=== PATIENT | female | born 2000 | race Caucasian/White ===

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

== ENCOUNTER 2019-01-18 13:36 | Emergency (ER) | payer SELFPAY ==
[~2019-01-18] VITALS: Ht 170.2 cm; Wt 77.1 kg
[~2019-01-18 13:36] MED LIST changes: +AMOX1TAB61 PO; +HYDR-3164 PO
[2019-01-18 14:00] VITALS: BP 106/65
[2019-01-18] MEDS ORDERED: SULF1TAB24 PO (14:30)
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
== END 2019-01-18 14:38 | disposition home or self-care (01) ==
LOC: ER 13:36
DX: L02.416 Cutaneous abscess of left lower limb (principal); L03.116 Cellulitis of left lower limb
CPT/HCPCS: 99283

== ENCOUNTER 2019-04-28 03:56 | Observation (INO) | payer MEDICAID ==
[2019-04-28] MEDS ORDERED: IV RINGERS,LACTATED 1000ML 1,000 ML IV PRN (04:00)
[2019-04-28] MEDS ORDERED: ACETAMINOPHEN 325 MG TABLET. PO PRN (04:00)
[2019-04-28] MEDS ORDERED: ACETAMINOPHEN 500 MG TABLET PO PRN (04:24)
[2019-04-28 05:07] LABS: BILIRUBIN,URINE NEGATIVE (NEG); CLARITY,URINE CLEAR; COLOR,URINE YELLOW; NITRITE,URINE POSITIVE (NEG); PROTEIN,URINE NEGATIVE (NEG-TRACE)
[2019-04-28 05:15] LABS: AMPHETAMINE/METHAMPHETAMINE POS (NEG); BARBITURATES NEG (NEG); BENZODIAZEPINES NEG (NEG); CANNABINOIDS NEG (NEG); COCAINE NEG (NEG); METHADONE NEG (NEG); OPIATES NEG (NEG); PHENCYCLIDINE NEG (NEG)
[2019-04-28 05:29] LABS: BACTERIA,URINE MANY /HPF (0-FEW); RBC,URINE 0 /HPF (0-2)
[2019-04-28 05:30] LABS: SQUAMOUS EPITHELIAL CELL,UR MANY /LPF
[2019-04-28] MEDS ORDERED: cefTRIAXone IM 1 GM VIAL IM ONE (06:00)
== END 2019-04-28 06:31 | disposition home or self-care (01) ==
LOC: 3 SO LND 03:56
PROVIDERS: ADMIT Obstetrics & Gynecology; ATTEND Obstetrics & Gynecology
DX: O26.893 Other specified pregnancy related conditions, third trimester (principal); R10.9 Unspecified abdominal pain; Z3A.36 36 weeks gestation of pregnancy
CPT/HCPCS: 80307; 81001; 87086; 96372; G0378; G0379; J0696

== ENCOUNTER 2020-03-08 15:06 | Emergency (ER) | payer OTHER ==
[~2020-03-08] VITALS: Ht 170.2 cm; Wt 77.0 kg
[2020-03-08] MEDS ORDERED: HYDROmorphone 2 MG/ML VIAL ONE (15:13)
[2020-03-08] MEDS ORDERED: HYDROmorphone 2 MG/ML VIAL IV ONE (15:30)
[2020-03-08] MEDS ORDERED: ONDANSETRON PF 4 MG/2 ML VIAL. IVP ONE (15:30)
--- NOTE | 2020-03-08 15:38 | PHYS DOC ---
Past Medical History Past Medical History: No Pertinent History Past Surgical History: Other Additional Past Surgical Histo: TUBES IN EAR Smoking Status: Never Smoker Alcohol Use: None Drug Use: None General Adult EDM: Chief Complaint: TRAUMA ALERT HPI: HPI: History obtained from patient. Patient is a 19-year-old right-handed female who presents with chief complaint of laceration to the right distal forearm. Jakob cole states 30 minutes prior to arrival she punched through a glass window in anger. States her fist went through the window. She states she noted immediate pain and bleeding to her right forearm. She does note some tingling sensation and slight numbness to the right hand. Denies weakness. Denies taking any blood thinners. Denies trauma anywhere else. Review of Systems: Review of Systems: Constitutional: Denies fever or chills. [] Eyes: Denies change in visual acuity. [] HENT: Denies nasal congestion or sore throat. [] Respiratory: Denies cough or shortness of breath. [] Cardiovascular: Denies chest pain or edema. [] GI: Denies abdominal pain, nausea, vomiting, bloody stools or diarrhea. [] : Denies dysuria. [] Musculoskeletal: Denies back pain or joint pain. [] Integument: Positive for laceration Neurologic: Denies headache, focal weakness or sensory changes. [] Endocrine: Denies polyuria or polydipsia. [] Lymphatic: Denies swollen glands. [] Psychiatric: Denies depression or anxiety. [] Heart Score: Risk Factors: Risk Factors: DM, Current or recent (<one month) smoker, HTN, HLP, family history of CAD, obesity. Risk Scores: Score 0 - 3: 2.5% MACE over next 6 weeks - Discharge Home Score 4 - 6: 20.3% MACE over next 6 weeks - Admit for Clinical Observation Score 7 - 10: 72.7% MACE over next 6 weeks - Early Invasive Strategies Current Medications: Current Medications Medications (Trade) Dose Ordered Sig/[facility]el[facility] Start Time Stop Time Status Last Admin Dose Admin Cefazolin Sodium/ Dextrose 50 ml @ 100 mls/hr 1X ONCE 03/08/20 15:30 03/08/20 15:59 Hydromorphone HCl (Dilaudid) 1 mg 1X ONCE 03/08/20 15:30 03/08/20 15:31 DC 03/08/20 15:19 1 MG Ondansetron HCl (Zofran) 4 mg 1X ONCE 03/08/20 15:30 03/08/20 15:31 DC Allergies: Allergies: Allergies Coded Allergies Type Severity Reaction Last Updated Verified No Known Drug Allergies 11/06/15 No Physical Exam: PE: Physical Exam Trauma: Primary Survey: Airway: Intact. Speaks in normal voice and phonation. Breathing: Breath sounds are clear and equal bilaterally. Circulation: Regular rhythm, 2+ and symmetric radial, DP and PT pulses. Disability: GCS on arrival was 15. Pupils 3 mm, ERRL Exposure: Complete exposure obtained and described in detail below. Secondary Survey: General: Awake, alert, appropriate, and in moderate acute distress HENT: Atraumatic. TMs clear bilaterally, no hemotympanum. No periorbital tenderness or deformity. No obvious craniofacial trauma. Midface is stable. No apparent dental or tongue/oropharyngeal injury. No septal hematoma. Neck: C-spine: no midline tenderness. Without step-off, deformity, abrasion, ecchymosis, or other signs of trauma. Paraspinal musculature with no tenderness and/or hypertonicity. Eyes: Pupils 3 mm ERRL, EOMI grossly, no evidence of ocular trauma, conjunctivae normal Respiratory: CTAB without wheezing, rhonchi, or rales. No distress. Chest wall with no tenderness to palpation. No crepitus, ecchymosis, or flail segment present. Cardiovascular: Regular rhythm without murmurs noted. 2+ and symmetric radial, DP and PT pulses. GI: Soft, non-tender, non-distended Musculoskeletal: T-spine: no midline tenderness. Without step-off, deformity, abrasion, ecchymosis, or other signs of trauma. Paraspinal musculature with no tenderness and/or hypertonicity. L-spine: no midline tenderness. Without step-off, deformity, abrasion, ecchymosis, or other signs of trauma. Paraspinal musculature with no tenderness and/or hypertonicity. RUE: 3 cm laceration approximately 3 inches proximal from the wrist along the medial aspect of the right forearm. Adipose tissue visualized. No active bleeding appreciated. Additional 2 mm puncture wound noted over the lateral aspect approximately 3 inches proximal from the wrist. Brisk bleeding noted. Thready radial pulse on the right. Unable to visualize source of bleeding given small nature of wound. No obvious bruit auscultated over injury site LUE: Active ROM, no obvious deformity, no gross weakness or sensory deficits, warm & well-perfused RLE: Active ROM, no obvious deformity, no gross weakness or sensory deficits, wa rm & well-perfused LLE: Active ROM, no obvious deformity, no gross weakness or sensory deficits, warm & well-perfused Integument: Without abrasions, contusions, or lacerations. Neurologic: GCS on arrival as noted above. No obvious focal motor or sensory deficits on examination. Gait not assessed due to acuity of trauma assessment. EKG: EKG: [] Radiology/Procedures: Radiology/Procedures: [facility] [address] [place] [address] IMAGING REPORT Signed PATIENT: BERNARDO MAYEN NACCOUNT: [id number] : 2000 LOCATION: ER AGE: 19 SEX: F EXAM STATUS: REG ER ORD. PHYSICIAN: NOLVIA TAVARES DO REASON: laceration PROCEDURE: FOREARM RIGHT EXAM: Right forearm, 2 views. HISTORY: Laceration. COMPARISON: None. FINDINGS: 2 views of the right forearm are obtained. There is no fracture, dislocation or subluxation. There is a soft tissue laceration with associated soft tissue gas involving the ventral aspect of the distal forearm. No radiodense foreign body is seen. IMPRESSION: Soft tissue laceration involving the forearm. No foreign body or fracture is seen. Electronically signed by: Charline Dunham MD (03/08/2020 3:45 PM) [facility] DICTATED and SIGNED BY: CHARLINE DUNHAM MD DATE: 03/08/20 1545 [] Course & Med Decision Making: Course & Med Decision Making Pertinent Labs and Imaging studies reviewed. (See chart for details) [] Patient is a 19-year-old female presents with chief complaint of laceration of the right distal forearm after punching her fist through a glass window. Ini tial vital signs notable for tachycardia. She does appear anxious and in moderate distress. Wound evaluation noted above. I am concerned for vascular injury given the nature of the wound. Furthermore, the briskly bleeding wound is approximately 2 mm and I am unable to visualize the source of bleeding. I do not feel it is appropriate to explore the wound on my own as it may cause further damage and she could have current arterial injury. Tourniquet was placed at 1512. This did achieve hemostasis. Pain was well controlled. She was given 2 g Ancef. Tetanus was updated. Plain film imaging did not reveal any obvious fractures. I did discuss the case immediately with [facility] trauma transfer center. Patient has been accepted by to their emergency department. Dragon Disclaimer: Dragon Disclaimer: This electronic medical record was generated, in whole or in part, using a voice recognition dictation system. Departure Departure Impression: Primary Impression: Laceration of forearm, right, complicated Qualified Codes: S51.811A - Laceration without foreign body of right forearm, initial encounter Additional Impression: Vascular injury of right arm Qualified Codes: S45.901A - Unspecified injury of unspecified blood vessel at shoulder and upper arm level, right arm, initial encounter Disposition: 02 DC/TRF OTHER SHORT TERM HOS Condition: STABLE Referrals: FROYLAN NIEVES MD (PCP) NOLVIA TAVARES DO Mar 08, 2020 15:38
[2020-03-08] MEDS ORDERED: fentaNYL PF VIAL 100 MCG/2 ML VIAL ONE (15:44)
[2020-03-08 15:45] VITALS: BP 131/75
[2020-03-08] MEDS ORDERED: fentaNYL PF VIAL 100 MCG/2 ML VIAL IVP ONE (15:45)
[2020-03-08] MEDS ORDERED: IV NORMAL SALINE 1000ML BAG 1,000 ML IV ONE (15:45)
--- NOTE | 2020-03-08 15:48 | RAD ---
EXAM: Right forearm, 2 views. HISTORY: Laceration. COMPARISON: None. FINDINGS: 2 views of the right forearm are obtained. There is no fracture, dislocation or subluxation. There is a soft tissue laceration with associated soft tissue gas involving the ventral aspect of the distal forearm. No radiodense foreign body is seen. IMPRESSION: Soft tissue laceration involving the forearm. No foreign body or fracture is seen. Electronically signed by: Charline Canchola MD (03/08/2020 3:45 PM) [facility]
== END 2020-03-08 15:55 | disposition short-term general hospital (02) ==
LOC: ER 15:06
DX: S51.811A Laceration without foreign body of right forearm, initial encounter (principal); S55 Injury of blood vessels at forearm level; R20.2 Paresthesia of skin; Z98.890 Other specified postprocedural states; W25.XXXA Contact with sharp glass, initial encounter; Y93.89 Activity, other specified; Y92.89 Other specified places as the place of occurrence of the external cause; Y99.8 Other external cause status
CPT/HCPCS: 73090; 96365; 96375; 99285; J0690; J1170; J2405; J3010; J7030

== ENCOUNTER 2020-06-26 13:38 | Emergency (ER) | payer OTHER ==
[~2020-06-26] VITALS: Ht 170.2 cm; Wt 81.8 kg
[2020-06-26] MEDS ORDERED: LIDOCAINE 1% Multi-Dose 20 ML VIAL. ONE (14:54)
[2020-06-26] MEDS ORDERED: cefTRIAXone IM 250 MG VIAL IM ONE ×2 (15:45→16:30)
[2020-06-26] MEDS ORDERED: DOXY100T PO (16:18)
[2020-06-26] MEDS ORDERED: HYDR-2761 PO (16:18)
--- NOTE | 2020-06-26 16:18 | ED.ADGEN ---
Past Medical History Past Medical History: No Pertinent History, Other Additional Past Medical Histor: denies psych hx Past Surgical History: No Surgical History Additional Past Surgical Histo: TUBES IN EAR Smoking Status: Never Smoker Alcohol Use: None Drug Use: None General Adult EDM: Chief Complaint: VAGINAL PROBLEM HPI: HPI: Patient is a 20 year old female who presents emergency department with complaints of increased pain in her left Bartholin cyst. She states that she has had problems with the cyst for over 6 months but over the last month she has noticed a significant amount of increased swelling and pain. She also complains of foul-smelling vaginal odor and irregular vaginal discharge. She states that she is currently on her menstrual cycle. Patient reports concerns of a possible sexually transmitted infection she states that recent partner informed her that he had been diagnosed with STD recently. She also reports that her urine has been smelling strong and she has had increased urinary frequency. She denies any blood in her urine, nausea, vomiting, diarrhea, fever, cough, sore throat, body aches, chills, or diarrhea. Patient reports that her genitalia is constantly hot. She currently rates her pain a 6 out of 10 on the pain scale, she denies any alleviating factors. Review of Systems: Review of Systems: Complete ROS is negative unless otherwise noted in HPI. Current Medications: Current Medications Medications (Trade) Dose Ordered Sig/[facility] Start Time Stop Time Status Last Admin Dose Admin Ceftriaxone Sodium (Rocephin Im) 500 mg 1X ONCE 06/26/20 16:30 06/26/20 16:31 DC 06/26/20 16:28 500 MG Lidocaine HCl (Lidocaine 1% 20ml Vial) 20 ml STK-MED ONCE 06/26/20 14:54 06/26/20 14:54 DC Allergies: Allergies: Allergies Coded Allergies Type Severity Reaction Last Updated Verified No Known Drug Allergies 11/06/15 No Physical Exam: PE: See Above Constitutional: Well developed, well nourished, no acute distress, non-toxic appearance. HENT: Normocephalic, atraumatic, bilateral external ears normal, nose normal. Eyes: PERRLA, EOMI, conjunctiva normal, no discharge. Neck: Normal range of motion, no stridor. Cardiovascular: Heart rate regular rhythm Lungs & Thorax: Respirations even and unlabored, no retractions, no respiratory distress Pelvic Exam: Abrasive Mixer Helper present Priyanka to RN Abdomen: Nontender, soft External Genitalia: Swelling and fluctuance to left labia consistent with Bartholin's abscess/cyst Speculum: Patient unable to tolerate due to states Bimanual: Deferred Skin: Warm, dry, no erythema, no rash. Back: No tenderness Extremities: No cyanosis, ROM intact, no edema. Neurologic: Alert and oriented X 3, no focal deficits noted. Psychologic: Affect normal, judgement normal, mood normal. Current Patient Data: Labs: Laboratory Tests Test 06/26/20 13:57 POC Urine HCG, Qualitative Hcg negative (Negative) Microbiology 06/26/20 Wet Prep - Final, Complete Vital Signs: Vital Signs Date Time Temp Pulse Resp B/P (MAP) Pulse Ox O2 Delivery O2 Flow Rate FiO2 06/26/20 16:45 100 16 118/70 (86) 98 06/26/20 14:17 97.7 Room Air 97.7 EKG: EKG: [] Heart Score: Risk Factors: Risk Factors: DM, Current or recent (<one month) smoker, HTN, HLP, family history of CAD, obesity. Risk Scores: Score 0 - 3: 2.5% MACE over next 6 weeks - Discharge Home Score 4 - 6: 20.3% MACE over next 6 weeks - Admit for Clinical Observation Score 7 - 10: 72.7% MACE over next 6 weeks - Early Invasive Strategies Radiology/Procedures: Radiology/Procedures: Indication: Bartholin cyst/abscess Procedure: The patient was positioned appropriately. Local anesthesia was 1% lidocaine. An incision was then made over the apex of the lesion and 200 mls of serous drainage expressed. A word catheter was inserted without difficulty and was inflated with 4ml of NS. The patient tolerated the procedure well. Complications: none.[] Course & Med Decision Making: Course & Med Decision Making Pertinent Labs and Imaging studies reviewed. (See chart for details) Patient was treated prophylactically with 500 mg of IM Rocephin, and a p rescription for 100 mg of doxycycline twice a day for 7 days. Patient was instructed to avoid having intercourse until the results of gonorrhea and chlamydia testing are available, patient was notified that these results would not be available for 48 hours. If one or both of these tests is positive, patient needs to refrain from intercourse for approximately 1 week following the treatment of any current partners. 1528-I spoke with Dr. Vázquez and advised the patient and procedure in the emergency room. He is in agreement with the plan of care. I will instruct patient to follow-up with him in office next week to have the catheter removed and for reevaluation Angela Disclaimer: Angela Disclaimer: This electronic medical record was generated, in whole or in part, using a voice recognition dictation system. Departure Departure Impression: Primary Impression: Bartholin's gland abscess Additional Impression: Contact with and (suspected) exposure to infections with a predominantly sexual mode of transmission Disposition: 01 DC HOME SELF CARE/HOMELESS Condition: STABLE Referrals: VERA VÁZQUEZ Jr, MD Patient Instructions: Bartholin's Cyst and Abscess-Brief, Sexually Transmitted Disease, [id number] Additional Instructions: Fill the prescription and use as directed. Sitz baths as instructed. Call 's office for follow-up appointment next week. Return to the ER if your symptoms worsen or fever develops. I also recommend that you go to your local health department for comprehensive sexually transmitted disease testing. You have been treated for a suspected gonorrhea and chlamydia. Avoid having intercourse until the results of gonorrhea and chlamydia testing are available, these results will not be available for 48 hours. If one or both of these tests is positive, you need to refrain from intercourse for approximately 1 week following the treatment of any current partners. Scripts Hydrocodone Bit/Acetaminophen (HYDROCODONE-APAP 5-325 ) 1 Tab Tablet 0.5-1 TAB PO PRN Q6HRS PRN for SEVERE PAIN 7-10 for 3 Days, #10 TAB 0 Refills Prov: WILLIAN ROBB WILDLIFE CONTROL AGENT 06/26/20 Doxycycline Hyclate (DOXYCYCLINE HYCLATE) 100 Mg Tablet 1 TAB PO BID, #14 TAB 0 Refills Prov: WILLIAN ROBB WILDLIFE CONTROL AGENT 06/26/20 Problem Qualifiers WILLIAN ROBB APRN Jun 26, 2020 16:18
[2020-06-26 16:45] VITALS: BP 118/70
[2020-06-29 19:09] LABS: GC PROBE Negative (Negative)
== END 2020-06-26 16:45 | disposition home or self-care (01) ==
LOC: ER 13:38
DX: N75.0 Cyst of Bartholin's gland (principal); N89.8 Other specified noninflammatory disorders of vagina; R60.0 Localized edema; Z20.2 Contact with and (suspected) exposure to infections with a predominantly sexual mode of transmission; Z98.890 Other specified postprocedural states
CPT/HCPCS: 56420; 81025; 87491; 87591; 96372; 99284; J0696; Q0111

== ENCOUNTER 2021-03-01 10:05 | Emergency (ER) | payer OTHER ==
[~2021-03-01] VITALS: Ht 167.6 cm; Wt 77.2 kg
[~2021-03-01 10:05] MED LIST changes: +DOXY100T PO; +HYDR-2761 PO
[2021-03-01 10:42] LABS: BILIRUBIN,URINE NEGATIVE (NEG); CLARITY,URINE CLEAR; COLOR,URINE YELLOW; NITRITE,URINE NEGATIVE (NEG); PH,URINE 6.5 (<5.0-8.0); PROTEIN,URINE NEGATIVE (NEG-TRACE)
--- NOTE | 2021-03-01 10:47 | PHYS DOC ---
Past Medical History Past Medical History: No Pertinent History, Other Additional Past Medical Histor: denies psych hx Past Surgical History: No Surgical History Additional Past Surgical Histo: TUBES IN EAR Smoking Status: Never Smoker Alcohol Use: Occasionally Drug Use: None General Adult EDM: Chief Complaint: ABDOMINAL PAIN HPI: HPI: Patient is a 20 year old female with history of left-sided Bartholin gland cyst who presents with urinary frequency, urgency, dysuria. Has noticed this over the past several days to a week. Has noticed that her Bartholin gland cyst has gotten larger in size. Denies fevers/chills. Does have some mild low back pain with this. No abdominal pain. No pain over the Bartholin cyst itself. Review of Systems: Review of Systems: Constitutional: Denies fever or chills. [] Eyes: Denies change in visual acuity. [] HENT: Denies nasal congestion or sore throat. [] Respiratory: Denies cough or shortness of breath. [] Cardiovascular: Denies chest pain or edema. [] GI: Denies abdominal pain, nausea, vomiting, bloody stools or diarrhea. [] : Dysuria, urgency, frequency, low back discomfort Musculoskeletal: Denies back pain or joint pain. [] Integument: Denies rash. [] Neurologic: Denies headache, focal weakness or sensory changes. [] Endocrine: Denies polyuria or polydipsia. [] Lymphatic: Denies swollen glands. [] Psychiatric: Denies depression or anxiety. [] Heart Score: C/O Chest Pain: No Risk Factors: Risk Factors: DM, Current or recent (<one month) smoker, HTN, HLP, family history of CAD, obesity. Risk Scores: Score 0 - 3: 2.5% MACE over next 6 weeks - Discharge Home Score 4 - 6: 20.3% MACE over next 6 weeks - Admit for Clinical Observation Score 7 - 10: 72.7% MACE over next 6 weeks - Early Invasive Strategies Allergies: Allergies: Allergies Coded Allergies Type Severity Reaction Last Updated Verified No Known Drug Allergies 11/06/15 No Physical Exam: PE: Constitutional: Well developed, well nourished, no acute distress, non-toxic appearance. [] HENT: Normocephalic, atraumatic, bilateral external ears normal, oropharynx moist, no oral exudates, nose normal. [] Eyes: PERRLA, EOMI, conjunctiva normal, no discharge. [] Neck: Normal range of motion, no tenderness, supple, no stridor. [] Cardiovascular:Heart rate regular rhythm, no murmur [] Lungs & Thorax: Bilateral breath sounds clear to auscultation [] Abdomen: Soft, nontender to palpation. : Left-sided Bartholin gland cyst at 4 o'clock position. No overlying redness. Nontender to the touch. The cyst DOES obstruct the urethra. Skin: Scattered bruises on the lower extremities, warm, dry. Extremities: No tenderness, no cyanosis, no clubbing, ROM intact, no edema. [] Neurologic: Alert and oriented X 3, normal motor function, normal sensory function, no focal deficits noted. [] Psychologic: Affect normal, judgement normal, mood normal. [] Current Patient Data: Labs: Laboratory Tests Test 03/01/21 10:25 POC Urine HCG, Qualitative Hcg negative (Negative) Vital Signs: Vital Signs Date Time Temp Pulse Resp B/P (MAP) Pulse Ox O2 Delivery O2 Flow Rate FiO2 03/01/21 10:25 97.9 91 18 134/73 (93) 100 Room Air 97.9 EKG: EKG: [] Radiology/Procedures: Radiology/Procedures: Indication: Left-sided Bartholin cyst obstructing urethra Procedure: The patient was positioned appropriately. Betadine solution was used to prep the area. Local anesthesia: 1% lidocaine injected. An incision was then made over the mucosal surface. Stab incision, approximately 0.5 cm. Clear, serous fluid expressed. The drainage cavity was packed with a Word catheter. The patients tetanus status updated as needed. The patient tolerated the procedure well. Complications: none. Course & Med Decision Making: Course & Med Decision Making Pertinent Labs and Imaging studies reviewed. (See chart for details) Patient 20-year-old female with a history of left-sided Bartholin cyst who presents with urinary symptoms concerning for UTI. On exam Bartholin cyst does obstruct the urethra. Bartholin cyst does not appear infected. I&D as above, with serous fluid returned. UA does not appear infected. Symptoms likely from urethral obstruction. Word catheter placed. Provided with OB follow-up. Return precautions discussed. Angela Disclaimer: Angela Disclaimer: This electronic medical record was generated, in whole or in part, using a voice recognition dictation system. Departure Departure Impression: Primary Impression: Bartholin gland cyst Additional Impression: Urethral obstruction Disposition: 01 HOME / SELF CARE / HOMELESS Condition: STABLE Referrals: FROYLAN NIEVES MD (PCP) YON RODRIGUES MD Additional Instructions: Your Bartholin cyst was covering your urethra, blocking the flow of urine. Fortunately, your urine, and your Bartholin cyst did not appear infected. We placed a Word catheter in the cyst. Please leave this in place for the next 2-4 weeks. Please follow-up with an OPEN HEARTH STOCKYARD SUPERVISOR doctor. We attach the information for our plan coordinator, Dr. Rodrigues. Please follow-up with your PCP as well. Return to the emergency department for fever, chills, low back pain, or redness/swelling around your Bartholin cyst drainage area. MANDEEP FARMER MD Mar 01, 2021 10:47
[2021-03-01 10:50] LABS: U PREG PATIENT NEGATIVE (NEG)
[2021-03-01 10:55] LABS: BACTERIA,URINE 0 /HPF (0-FEW); RBC,URINE 0 /HPF (0-2)
[2021-03-01] MEDS ORDERED: LIDOCAINE 1% Multi-Dose 20 ML VIAL. INJ ONE (11:15)
[2021-03-01 11:21] VITALS: BP 103/73
== END 2021-03-01 11:38 | disposition home or self-care (01) ==
LOC: ER 10:05
DX: N75.0 Cyst of Bartholin's gland (principal)
CPT/HCPCS: 56420; 81001; 81025; 99284; J3490

== ENCOUNTER 2021-08-04 23:39 | Emergency (ER) | payer OTHER | END 2021-08-05 00:35 | disposition left against medical advice (07) | LOC: ER 23:39 | DX: N89.8 Other specified noninflammatory disorders of vagina (principal); Z53.21 Procedure and treatment not carried out due to patient leaving prior to being seen by health care provider ==

== ENCOUNTER 2021-08-09 08:29 | Emergency (ER) | payer OTHER ==
[~2021-08-09] VITALS: Ht 170.2 cm; Wt 83.9 kg
[2021-08-09 09:09] VITALS: BP 132/72
== END 2021-08-09 09:55 | disposition left against medical advice (07) ==
LOC: ER 08:29
DX: N75.0 Cyst of Bartholin's gland (principal); Z53.21 Procedure and treatment not carried out due to patient leaving prior to being seen by health care provider
CPT/HCPCS: 81025

== ENCOUNTER 2021-08-15 14:26 | Emergency (ER) | payer OTHER ==
[~2021-08-15] VITALS: Ht 170.2 cm; Wt 84.9 kg
[2021-08-15 14:50] VITALS: BP 140/67
[2021-08-15] MEDS: LIDOCAINE 1% Multi-Dose 20 ML VIAL. INJ ONE (15:18)
[2021-08-15] MEDS: HYDROcodone/APAP 5/325MG 1 TAB TABLET PO ONE (15:19)
[2021-08-15] MEDS ORDERED: HYDR-2761 PO (16:15)
--- NOTE | 2021-08-15 16:16 | PHYS DOC ---
Past Medical History Past Medical History: No Pertinent History, Other Additional Past Medical Histor: denies psych hx (ESTER ROD Mariaa PROBATE PARALEGAL) Past Surgical History: No Surgical History Additional Past Surgical Histo: TUBES IN EAR (ESTER ROD PROBATE PARALEGAL) Smoking Status: Never Smoker Alcohol Use: Occasionally Drug Use: None (ESTER ROD Mariaa XIE) General Adult EDM: Chief Complaint: ABSCESS HPI: HPI: Patient is a 21 year old female presented to the ED today complaining of a Bartholin cyst of the left labia, she states she has had this is a recurrent problem for the last 1 year. She said it has been drained multiple times but it keeps coming back. (ESTER ROD PROBATE PARALEGAL) Review of Systems: Review of Systems: Constitutional: Denies fever or chills. [] [] Female -reports of Bartholin cyst to the left labia : Denies dysuria. [] Musculoskeletal: Denies back pain or joint pain. [] Integument: Denies rash. [] Neurologic: Denies headache, focal weakness or sensory changes. [] Psychiatric: Denies depression or anxiety. [] (RICCOLataESTER Mariaa PROBATE PARALEGAL) Heart Score: C/O Chest Pain: N/A Risk Factors: Risk Factors: DM, Current or recent (<one month) smoker, HTN, HLP, family history of CAD, obesity. Risk Scores: Score 0 - 3: 2.5% MACE over next 6 weeks - Discharge Home Score 4 - 6: 20.3% MACE over next 6 weeks - Admit for Clinical Observation Score 7 - 10: 72.7% MACE over next 6 weeks - Early Invasive Strategies (ESTER ROD Mariaa PROBATE PARALEGAL) Current Medications: Current Medications Medications (Trade) Dose Ordered Sig/Kelvin Start Time Stop Time Status Last Admin Dose Admin Acetaminophen/ Hydrocodone Bitart (Lortab 5/325) 2 tab 1X ONCE 08/15/21 15:00 08/15/21 15:03 DC 08/15/21 15:19 2 TAB Lidocaine HCl (Lidocaine 1% 20ml Vial) 20 ml 1X ONCE 08/15/21 15:00 08/15/21 15:03 DC 08/15/21 15:18 20 ML (RICCOLataESTER Mariaa PROBATE PARALEGAL) Allergies: Allergies: Allergies Coded Allergies Type Severity Reaction Last Updated Verified No Known Drug Allergies 11/06/15 No (ESTER ROD APRN) Physical Exam: PE: Constitutional: Well developed, well nourished, no acute distress, non-toxic appearance. [] Female : Lef labia majora inner aspect with a large lemon sized Bartholin cyst with fluctuance. No erythema. No tenderness Skin: Warm, dry, no erythema, no rash. [] Back: No tenderness, no CVA tenderness. [] Extremities: No tenderness, no cyanosis, no clubbing, ROM intact, no edema. [] Neurologic: Alert and oriented X 3, normal motor function, normal sensory function, no focal deficits noted. [] Psychologic: Affect normal, judgement normal, mood normal. [] (ESTER ROD APRN) Current Patient Data: Labs: Laboratory Tests Test 08/15/21 14:48 POC Urine HCG, Qualitative Hcg negative (Negative) Vital Signs: Vital Signs Date Time Temp Pulse Resp B/P (MAP) Pulse Ox O2 Delivery O2 Flow Rate FiO2 08/15/21 14:50 97.0 95 20 140/67 (91) 100 Room Air 97.0 (ESTER ROD PROBATE PARALEGAL) EKG: EKG: [] (ESTER ROD APRN) Radiology/Procedures: Radiology/Procedures: Indication: Left labial Bartholin cyst Procedure: The patient was positioned appropriately. Local anesthesia was 1% of lidocaine. An incision was then made over the apex of the lesion with an 11 blade and moderate amount of bloody brown material was expressed. The drainage cavity was irrigated and packed with sterile gauze, no white catheter was found in the ED. The patients tetanus status updated as needed. The patient tolerated the procedure well. Complications: none.[] (ESTER ROD APRN) Course & Med Decision Making: Course & Med Decision Making Pertinent Labs and Imaging studies reviewed. (See chart for details) This a 21-year-old female patient presented to the ED today with a Bartholin cyst in the left labia, this is a chronic problem. Cyst was drained in the ED. Tetanus up-to-date. Provided OB for follow-up. (ESTER ROD APRN) Course & Med Decision Making Correction-no PAYTON catheter present in ed (TANK RIVERO DO) Dragon Disclaimer: Dragon Disclaimer: This electronic medical record was generated, in whole or in part, using a voice recognition dictation system. (ESTER ROD APRN) Departure Departure Impression: Primary Impression: Bartholin cyst Disposition: HOME / SELF CARE / HOMELESS Condition: STABLE Referrals: NO PCP (PCP) YON RODRIGUES MD follow up in the next 1 week Patient Instructions: Bartholin's Cyst or Abscess Additional Instructions: You have a Bartholin cyst that was drained in the emergency room. Remove the packing in 2 days. Keep the area clean and dry. Follow-up with your [employer] or the provided [employer] in 1 week Scripts Hydrocodone Bit/Acetaminophen (HYDROCODONE-APAP 5-325 ) 1 Tab Tablet 1 TAB PO PRN Q6HRS PRN for PAIN, #14 TAB 0 Refills Prov: ESTER ROD APRN 08/15/21 ESTER ROD APRN Aug 15, 2021 16:16 TANK RIVERO DO Aug 15, 2021 17:02
== END 2021-08-15 16:48 | disposition home or self-care (01) ==
LOC: ER 14:26
DX: N75.0 Cyst of Bartholin's gland (principal)
CPT/HCPCS: 56420; 81025; 99284; J3490